=== PATIENT | male | born 2000 | race African-American/Black ===

== ENCOUNTER 2022-10-14 21:12 | Emergency (ER) | payer OTHER ==
[2022-10-14 21:43] VITALS: BP 117/77; PULSE 72; RESP 16; TEMP 98.1; BMI 19.7
== END 2022-10-15 00:24 | disposition home or self-care (01) ==
LOC: FER 21:12
DX: R31.9 Hematuria, unspecified (principal)
CPT/HCPCS: 74176-TC; 81003; 81015; 87086; 99284-25